=== PATIENT | male | born 1975 | race Caucasian/White ===

== ENCOUNTER 2018-12-06 10:03 | Observation (INO) ==
[2018-12-06] MEDS ORDERED: Pantoprazole 40 MG VIAL IVP ONE ×2 (11:29→13:12)
[2018-12-06] MEDS ORDERED: Octreotide 50 MCG/ML INJ IVP ONE (11:29)
--- NOTE | 2018-12-06 11:39 | Emergency Department Note ---
Disposition Clinical Impression: Alcohol use GI bleed Qualifiers: GI bleed type/associated pathology: unspecified gastrointestinal hemorrhage type Qualified Code(s): K92.2 - Gastrointestinal hemorrhage, unspecified Disposition: Admitted As Inpatient Referrals: Kalia Tovar DO [Primary Care Provider] - Forms: ED Satisfaction Letter Time of Disposition: 13:32 GI Bleed HPI - General Chief complaint: ED GI Bleed Stated complaint: "rectal bleeding" Time Seen by Provider: 12/06/18 11:10 Source: patient Limitations: no limitations Nursing Notes Reviewed: Yes Vital Signs Reviewed: Yes - History of Present Illness HPI Narrative: Mr. Wills is a 43-year-old male with past medical history of alcohol abuse and tobacco use, presenting emergency department with rectal bleeding. First noticed a small amount of bleeding on the toilet paper intermittently for a couple months, but yesterday and today his bleeding has increased and he is having bright red blood in the toilet. He has had diarrhea for several weeks to months. Denies lightheadedness, dizziness, syncope, abdominal pain, nausea, vomiting, or history of melena. Denies fevers, night sweats, weight loss, chest pain, or dyspnea. He admits drinking a 12 pack of beer each night. He is also a smoker. No family history of colon cancer. - Related Data Home Medications Medication Instructions Recorded Confirmed Paroxetine [Paxil] 20 mg PO DAILY 12/01/15 12/02/15 Previous Rx's Medication Instructions Recorded Ibuprofen [Motrin] 800 mg PO Q8HR #30 tablet 09/08/16 Amoxicillin/Clavulanate [Augmentin] 875 mg PO BIDWM #20 tablet 05/24/17 Fluticasone Propionate Nasal 2 spray NS DAILY #1 bottle 05/24/17 [Flonase] Allergies Allergy/AdvReac Type Severity Reaction Status Date / Time No Known Allergies Allergy Verified 12/06/18 10:17 Review of Systems: Admits to hematochezia and diarrhea. Denies lightheadedness, dizziness, syncope, abdominal pain, nausea, vomiting, melena, fevers, night sweats, weight loss, chest pain, or dyspnea Past Medical History - Past Medical History Medical history: Reports: non-contributory Surgical history: Reports: other Psychiatric history: Reports: anxiety, panic disorder - Social History Smoking Status: Current every day smoker Smokeless Tobacco Status: No Alcohol use: Reports: heavy Drug use: Reports: none Physical Exam GEN: No acute distress, A&O3 HEAD: Atraumatic, normocephalic EYES: Pupils symmetric, sclera white, conjunctiva pink HEART: RRR, normal S1 and S2, no murmurs LUNGS: Clear to auscultation bilaterally, no wheezes, rhonchi, or crackles ABD: Soft, mild epigastric tenderness, nondistended, no guarding, rigidity, or rebound RECTAL: normal tone, mild external irritation of the skin, but no fissures or external hemorrhoids, normal tone, no internal masses palpated, bright red blood stool on the glove EXT: No edema noted, pulses +2 NEURO: No focal deficits, cooperative with exam - General Limitations: no limitations General appearance: alert, in no apparent distress Course Vital Signs Temperature 98.6 F 12/06/18 10:18 Pulse Rate 79 12/06/18 10:18 Respiratory Rate 15 12/06/18 10:18 Blood Pressure 162/119 12/06/18 10:18 O2 Sat by Pulse Oximetry 96 12/06/18 10:18 Temperature 98.6 F 12/06/18 10:18 Pulse Rate 79 12/06/18 14:53 Respiratory Rate 16 12/06/18 14:53 Blood Pressure 148/116 12/06/18 14:53 O2 Sat by Pulse Oximetry 94 12/06/18 14:53 Oxygen Delivery Oxygen Delivery Room Air GI Bleed - MDM Narrative Medical decision making narrative: The patient is a 43 yo male presenting with GI bleed in the setting of chronic alcohol use. Rectal exam shows no obvious source of bleeding. Suspect esophageal varices as the source. Hemoccult-positive. EKG shows normal sinus rhythm, HR of 87, and no acute ischemic changes. Octreotide and pantoprazole ordered but the patient wanted to wait until labs returned before starting the medicines. His CBC, CMP, and PT/INR are all normal. He is asymptomatic, not tachycardic, but given the concern for possible worsening in his bleeding, he will be admitted to the hospitalist for observation and likely EGD and/or colonoscopy for evaluation of his bleeding. Discussed the case with the admitting hospitalist, Dr. Dumont, who is accepting of his admission. - Lab Data Result diagrams: 12/06/18 12:08 12/06/18 12:08 Lab Results 12/06/18 12/06/18 12/06/18 Range/Units 11:44 12:08 12:08 WBC 8.5 (4.3-11.1) K/mcL RBC 5.46 (4.19-5.50) M/mcL Hgb 16.4 (12.9-16.9) g/dL Hct 48.3 (37.5-50.1) % MCV 88.5 (83.0-100.0) fL MCH 30.0 (28.0-33.3) pg MCHC 34.0 (31.6-35.5) g/dL RDW 12.7 (11.5-14.5) % Plt Count 215 (140-400) K/mcL MPV 10.0 (9.4-12.4) fL Immature Gran % 0.4 (0-4) % Seg Neutrophils % 60.6 % Lymphocytes % 27.6 % Monocytes % 8.9 % Eosinophils % 1.7 % Basophils % 0.8 % Neutrophils # 5.1 (1.6-8.9) K/mcL Lymphocytes # 2.3 (0.6-4.6) K/mcL Monocytes # 0.8 (0.0-1.3) K/mcL Eosinophils # 0.1 (0.0-0.6) K/mcL Basophils # 0.1 (0.0-0.2) K/mcL PT 11.5 (9.4-12.1) Seconds INR 1.0 Sodium (136-145) mEq/L Potassium (3.5-5.1) mEq/L Chloride (98-107) mEq/L Carbon Dioxide (23-29) mEq/L BUN (6-20) mg/dL Creatinine (0.70-1.30) mg/dL Est GFR ( Amer) (> 60) Est GFR (Non-Af Amer) (> 60) BUN/Creatinine Ratio (6-26) Glucose (70-105) mg/dL Calculated Osmolality (280-300) Calcium (8.6-10.3) mg/dL Total Bilirubin (0.3-1.0) mg/dL Direct Bilirubin (0.0-0.2) mg/dL Indirect Bilirubin (0.0-1.2) mg/dL AST (13-39) Units/L ALT (7-52) Units/L Alkaline Phosphatase (34-104) Units/L Serum Total Protein (6.4-8.9) g/dL Albumin (3.5-5.7) g/dL Globulin (2.4-3.5) g/dL Albumin/Globulin Ratio (1.1-2.2) Stool Occult Bld Scrn Positive A (Negative) Blood Type Antibody Screen 12/06/18 12/06/18 12/06/18 Range/Units 12:08 12:08 12:08 WBC (4.3-11.1) K/mcL RBC (4.19-5.50) M/mcL Hgb (12.9-16.9) g/dL Hct (37.5-50.1) % MCV (83.0-100.0) fL MCH (28.0-33.3) pg MCHC (31.6-35.5) g/dL RDW (11.5-14.5) % Plt Count (140-400) K/mcL MPV (9.4-12.4) fL Immature Gran % (0-4) % Seg Neutrophils % % Lymphocytes % % Monocytes % % Eosinophils % % Basophils % % Neutrophils # (1.6-8.9) K/mcL Lymphocytes # (0.6-4.6) K/mcL Monocytes # (0.0-1.3) K/mcL Eosinophils # (0.0-0.6) K/mcL Basophils # (0.0-0.2) K/mcL PT (9.4-12.1) Seconds INR Sodium 143 (136-145) mEq/L Potassium 4.1 (3.5-5.1) mEq/L Chloride 107 (98-107) mEq/L Carbon Dioxide 27 (23-29) mEq/L BUN 15 (6-20) mg/dL Creatinine 0.93 (0.70-1.30) mg/dL Est GFR ( Amer) > 60 (> 60) Est GFR (Non-Af Amer) > 60 (> 60) BUN/Creatinine Ratio 16 (6-26) Glucose 103 (70-105) mg/dL Calculated Osmolality 297 (280-300) Calcium 9.4 (8.6-10.3) mg/dL Total Bilirubin 0.7 (0.3-1.0) mg/dL Direct Bilirubin 0.1 (0.0-0.2) mg/dL Indirect Bilirubin 0.6 (0.0-1.2) mg/dL AST 27 (13-39) Units/L ALT 33 (7-52) Units/L Alkaline Phosphatase 48 (34-104) Units/L Serum Total Protein 7.1 (6.4-8.9) g/dL Albumin 4.4 (3.5-5.7) g/dL Globulin 2.7 (2.4-3.5) g/dL Albumin/Globulin Ratio 1.6 (1.1-2.2) Stool Occult Bld Scrn (Negative) Blood Type O POSITIVE Antibody Screen NEGATIVE
--- NOTE | 2018-12-06 11:47 | Emergency Department Note ---
Disposition Clinical Impression: Alcohol use GI bleed Qualifiers: GI bleed type/associated pathology: unspecified gastrointestinal hemorrhage type Qualified Code(s): K92.2 - Gastrointestinal hemorrhage, unspecified Disposition: Admitted As Inpatient Condition: Fair Referrals: Kalia Tovar DO [Primary Care Provider] - Forms: ED Satisfaction Letter Time of Disposition: 13:52 General Adult HPI - General Chief complaint: ED GI Bleed Stated complaint: "rectal bleeding" Time Seen by Provider: 12/06/18 11:10 Source: patient Limitations: no limitations - History of Present Illness Pain Scale: 2 - Related Data Home Medications Medication Instructions Recorded Confirmed Paroxetine [Paxil] 20 mg PO DAILY 12/01/15 12/02/15 Previous Rx's Medication Instructions Recorded Ibuprofen [Motrin] 800 mg PO Q8HR #30 tablet 09/08/16 Amoxicillin/Clavulanate [Augmentin] 875 mg PO BIDWM #20 tablet 05/24/17 Fluticasone Propionate Nasal 2 spray NS DAILY #1 bottle 05/24/17 [Flonase] Allergies Allergy/AdvReac Type Severity Reaction Status Date / Time No Known Allergies Allergy Verified 12/06/18 10:17 Past Medical History - Past Medical History Medical history: Reports: non-contributory Surgical history: Reports: other Psychiatric history: Reports: anxiety, panic disorder - Social History Smoking Status: Current every day smoker Smokeless Tobacco Status: No Alcohol use: Reports: heavy Drug use: Reports: none Physical Exam - General Limitations: no limitations General appearance: alert, in no apparent distress Course Vital Signs Temperature 98.6 F 12/06/18 10:18 Pulse Rate 79 12/06/18 10:18 Respiratory Rate 15 12/06/18 10:18 Blood Pressure 162/119 12/06/18 10:18 O2 Sat by Pulse Oximetry 96 12/06/18 10:18 Temperature 98.6 F 12/06/18 10:18 Pulse Rate 86 12/06/18 13:12 Respiratory Rate 19 12/06/18 13:12 Blood Pressure 147/109 12/06/18 13:12 O2 Sat by Pulse Oximetry 98 12/06/18 13:12 Oxygen Delivery Oxygen Delivery Room Air Medical Decision Making - Lab Data Result diagrams: 12/06/18 12:08 12/06/18 12:08 Lab Results 12/06/18 12/06/18 12/06/18 Range/Units 11:44 12:08 12:08 WBC 8.5 (4.3-11.1) K/mcL RBC 5.46 (4.19-5.50) M/mcL Hgb 16.4 (12.9-16.9) g/dL Hct 48.3 (37.5-50.1) % MCV 88.5 (83.0-100.0) fL MCH 30.0 (28.0-33.3) pg MCHC 34.0 (31.6-35.5) g/dL RDW 12.7 (11.5-14.5) % Plt Count 215 (140-400) K/mcL MPV 10.0 (9.4-12.4) fL Immature Gran % 0.4 (0-4) % Seg Neutrophils % 60.6 % Lymphocytes % 27.6 % Monocytes % 8.9 % Eosinophils % 1.7 % Basophils % 0.8 % Neutrophils # 5.1 (1.6-8.9) K/mcL Lymphocytes # 2.3 (0.6-4.6) K/mcL Monocytes # 0.8 (0.0-1.3) K/mcL Eosinophils # 0.1 (0.0-0.6) K/mcL Basophils # 0.1 (0.0-0.2) K/mcL PT 11.5 (9.4-12.1) Seconds INR 1.0 Sodium (136-145) mEq/L Potassium (3.5-5.1) mEq/L Chloride (98-107) mEq/L Carbon Dioxide (23-29) mEq/L BUN (6-20) mg/dL Creatinine (0.70-1.30) mg/dL Est GFR ( Amer) (> 60) Est GFR (Non-Af Amer) (> 60) BUN/Creatinine Ratio (6-26) Glucose (70-105) mg/dL Calculated Osmolality (280-300) Calcium (8.6-10.3) mg/dL Total Bilirubin (0.3-1.0) mg/dL Direct Bilirubin (0.0-0.2) mg/dL Indirect Bilirubin (0.0-1.2) mg/dL AST (13-39) Units/L ALT (7-52) Units/L Alkaline Phosphatase (34-104) Units/L Serum Total Protein (6.4-8.9) g/dL Albumin (3.5-5.7) g/dL Globulin (2.4-3.5) g/dL Albumin/Globulin Ratio (1.1-2.2) Stool Occult Bld Scrn Positive A (Negative) Blood Type Antibody Screen 12/06/18 12/06/18 12/06/18 Range/Units 12:08 12:08 12:08 WBC (4.3-11.1) K/mcL RBC (4.19-5.50) M/mcL Hgb (12.9-16.9) g/dL Hct (37.5-50.1) % MCV (83.0-100.0) fL MCH (28.0-33.3) pg MCHC (31.6-35.5) g/dL RDW (11.5-14.5) % Plt Count (140-400) K/mcL MPV (9.4-12.4) fL Immature Gran % (0-4) % Seg Neutrophils % % Lymphocytes % % Monocytes % % Eosinophils % % Basophils % % Neutrophils # (1.6-8.9) K/mcL Lymphocytes # (0.6-4.6) K/mcL Monocytes # (0.0-1.3) K/mcL Eosinophils # (0.0-0.6) K/mcL Basophils # (0.0-0.2) K/mcL PT (9.4-12.1) Seconds INR Sodium 143 (136-145) mEq/L Potassium 4.1 (3.5-5.1) mEq/L Chloride 107 (98-107) mEq/L Carbon Dioxide 27 (23-29) mEq/L BUN 15 (6-20) mg/dL Creatinine 0.93 (0.70-1.30) mg/dL Est GFR ( Amer) > 60 (> 60) Est GFR (Non-Af Amer) > 60 (> 60) BUN/Creatinine Ratio 16 (6-26) Glucose 103 (70-105) mg/dL Calculated Osmolality 297 (280-300) Calcium 9.4 (8.6-10.3) mg/dL Total Bilirubin 0.7 (0.3-1.0) mg/dL Direct Bilirubin 0.1 (0.0-0.2) mg/dL Indirect Bilirubin 0.6 (0.0-1.2) mg/dL AST 27 (13-39) Units/L ALT 33 (7-52) Units/L Alkaline Phosphatase 48 (34-104) Units/L Serum Total Protein 7.1 (6.4-8.9) g/dL Albumin 4.4 (3.5-5.7) g/dL Globulin 2.7 (2.4-3.5) g/dL Albumin/Globulin Ratio 1.6 (1.1-2.2) Stool Occult Bld Scrn (Negative) Blood Type O POSITIVE Antibody Screen NEGATIVE Attestation Statement - Attestation Attestation: Physician attestation I saw and evaluated the patient and and reviewed the resident's note/PA note/FOAM CHARGER note, and I agree with the findings and plan. I personally supervised and was present for the patel/critical portions of any procedures. The medical decision- making was reviewed with the DATE NIGHT CAREGIVER/PA/Advanced Practice Nurse/Resident Physician. I agree with the documented findings, disposition and treatment plan as de scribed except to the extent set forth below. The patient presents with a GI bleed and has had rectal bleeding intermittently for the past several months but today had 2 episodes of large quantity which is bright red blood and of note the patient does drink 12 beers per day and we are concerned about possible esophageal varices. Rectal exam did not show a anatomic reason such as a fissure or hemorrhoid as etiology of the bleed. Patient does not have lightheadedness. He is started on Protonix, he is started on octreotide, we have a type and screen, labs are pending. The patient will be admitted. [id number] I did review the patient's EKG showing normal sinus rhythm with rate of 87 and without acute ischemic change [id number]
[2018-12-06 12:37] LABS: Basophils # 0.1 K/mcL (0.0-0.2); Basophils % 0.8 %; Eosinophils # 0.1 K/mcL (0.0-0.6); Eosinophils % 1.7 %; Hematocrit 48.3 % (37.5-50.1); Hemoglobin 16.4 g/dL (12.9-16.9); Immature Granulocytes % 0.4 % (0-4); Lymphocytes # 2.3 K/mcL (0.6-4.6); Lymphocytes % 27.6 %; Mean Corpuscular Volume 88.5 fL (83.0-100.0); Monocytes # 0.8 K/mcL (0.0-1.3); Monocytes % 8.9 %; Neutrophils # 5.1 K/mcL (1.6-8.9); Platelet Count 215 K/mcL (140-400); Red Blood Count 5.46 M/mcL (4.19-5.50); Red Cell Distribution Width 12.7 % (11.5-14.5); Segmented Neutrophils % 60.6 %; White Blood Count 8.5 K/mcL (4.3-11.1)
[2018-12-06 12:46] LABS: Prothrombin Time 11.5 Seconds (9.4-12.1)
[2018-12-06 13:00] LABS: Albumin 4.4 g/dL (3.5-5.7); Albumin/Globulin Ratio 1.6 (1.1-2.2); BUN/Creatinine Ratio 16 (6-26); Bilirubin,Direct 0.1 mg/dL (0.0-0.2); Bilirubin,Indirect 0.6 mg/dL (0.0-1.2); Bilirubin,Total 0.7 mg/dL (0.3-1.0); Blood Urea Nitrogen 15 mg/dL (6-20); Calcium 9.4 mg/dL (8.6-10.3); Carbon Dioxide 27 mEq/L (23-29); Chloride 107 mEq/L (98-107); Globulin 2.7 g/dL (2.4-3.5); Glucose 103 mg/dL (70-105); Osmolality,Calculated 297 (280-300); Potassium 4.1 mEq/L (3.5-5.1); Sodium 143 mEq/L (136-145); Total Protein 7.1 g/dL (6.4-8.9); eGFR For African Americans > 60 (> 60); eGFR For Non-African Americans > 60 (> 60)
[2018-12-06] MEDS: Nicotine 21 MG PATCH.TD24 TD SCH (13:26)
[2018-12-06] MEDS ORDERED: traMADol 50 MG TABLET PO PRN (13:53)
[2018-12-06] MEDS ORDERED: Ondansetron 4 MG/2 ML VIAL IVP PRN (13:53)
[2018-12-06] MEDS ORDERED: Naloxone 0.4 MG/ML INJ IVP PRN (13:53)
[2018-12-06] MEDS ORDERED: D5% in Water 1,000 ML IVC PRN (13:56)
[2018-12-06] MEDS ORDERED: *HR* Dextrose 50 % in Water (Syg) 50 ML SYRINGE IVP PRN (13:56)
[2018-12-06] MEDS ORDERED: Dextrose Gel 15 GM/37.5 ML TUBE PO PRN ×2 (13:56)
[2018-12-06] MEDS ORDERED: *HR* LORazepam 1 MG TABLET PO SCH (14:00)
[2018-12-06] MEDS ORDERED: *HR* LORazepam 2 MG/ML VIAL IVP PRN ×3 (14:52→15:21)
[2018-12-06 16:06] LABS: Lipase 100 Units/L (11-82)
[2018-12-06] MEDS ORDERED: Isovue-370 500 ML BOTTLE IVP ONE (16:36)
--- NOTE | 2018-12-06 16:44 | Internal Med History&Physical ---
Date of Encounter: 12/06/18 Time of Encounter: 16:37 Internal Medicine - H&P: HPI Chief complaint: painless bright red blood per rectum Plans for Post Hospital Care: Home History of present illness: Mr. Wills is a 43 year old male PMH of tobacco and alcohol abuse. Patient presented to the ED due to bright red blood per rectum. 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 Reported he kept having intermittent episodes of passing bright red blood while having a bowel movement, started he contacted his PCP a couple of weeks ago and he was scheduled for have a colonoscopy sometime in Jan. But reported last night when he was having a BM he started passing large amount of bright red blood per rectum, stated he was dripping blood and the toilet paper was saturated with blood. Reported after he had that BM last night the bleeding stopped, but reported he got up overnight to have a bowel movement and the same happened. He denies constipation, stated his stool has been loose all this time, denies abdominal pain, nausea or vomiting associated with his episodes. denies fever or chills. Denies Hx of colon cancer in his family. Patient also reports drinking 12 beers a day everyday, for sometime now and smoking almost 2 packs of cigarettes for the past 20 years. Past Med Surg Social Fam HX - Past Medical History Medical history: non-contributory Psychiatric history: anxiety, panic disorder - Past Surgical History Surgical History: other Additional surgical history: sinus surgery, shoulder sx - Social History Smoking Status: Current every day smoker Smokeless Tobacco Status: No Alcohol use: heavy Drug use: none - Family History Mother Hx Family Cardiac Disorders: Yes (HTn) Father Hx Family Cardiac Disorders: Yes (HTN) Internal Medicine - H&P: Meds Paroxetine [Paxil] 20 mg PO DAILY 12/01/15 [History] Allergy/AdvReac Type Severity Reaction Status Date / Time No Known Allergies Allergy Verified 12/06/18 10:17 All Systems PM: A 10-system review of systems was performed and is negative for pertinent findings except as documented above in the HPI. - Constitutional Constitutional: no chills, no fever(s), no weakness, no weight loss - Cardiovascular Cardiovascular ROS IM: no chest pain, no dyspnea on exertion, no irregular heart rhythm, no lightheadedness, no palpitations, no paroxysmal nocturnal dyspnea - Respiratory Respiratory: no cough - Gastrointestinal Gastrointestinal: hematochezia, no abdominal pain, no coffee ground emesis, no constipation, no hematemesis, no melena, no nausea, no vomiting - Genitourinary Genitourinary ROS male: no dysuria, no nocturia, no urinary frequency, no urinary urgency - Musculoskeletal Musculoskeletal ROS IM: no arthralgias, no numbness, no stiffness - Integumentary Integumentary IM: no erythema, no non-healing lesions - Neurological Neurological ROS: no headache(s), no weakness - Psychiatric Psychiatric: no anxiety, no hallucinations, no irritability - Endocrine Endocrine IM: no cold intolerance, no excessive sweating - Hematologic/Lymphatic Hematologic/Lymphatic: no lymphadenopathy - Allergic/Immunologic Allergic/Immunologic: no GI upset with certain foods - Constitutional Vitals: Temp Pulse Resp BP Pulse Ox 98.3 F 77 20 150/116 95 12/06/18 16:22 12/06/18 16:22 12/06/18 16:22 12/06/18 16:22 12/06/18 16:22 Exam: Vitals: Reviewed General: Alert and oriented x4. in no distress. Cardiovascular: RRR, normal S1 & S2, no rubs, murmurs or gallops. Lungs: CTA b/l, no wheezes or crackles. Abdomen: Soft, non-tender, no rigidity. Extremities: No edema Neurological: Normal cognition and motor skills. Rest of the physical exam is non contributory Internal Med - H&P Results - Labs CBC & Chem 7: 12/06/18 12:08 12/06/18 12:08 Labs: Short CBC 12/06/18 Range/Units 12:08 WBC 8.5 (4.3-11.1) K/mcL Hgb 16.4 (12.9-16.9) g/dL Hct 48.3 (37.5-50.1) % Plt Count 215 (140-400) K/mcL Neutrophils # 5.1 (1.6-8.9) K/mcL BMP 12/06/18 12:08 Sodium 143 Potassium 4.1 Chloride 107 Carbon Dioxide 27 BUN 15 Creatinine 0.93 Glucose 103 Calcium 9.4 Liver Function 09/19/19 Range/Units 12:08 Total Bilirubin 0.7 (0.3-1.0) mg/dL Direct Bilirubin 0.1 (0.0-0.2) mg/dL AST 27 (13-39) Units/L ALT 33 (7-52) Units/L Alkaline Phosphatase 48 (34-104) Units/L Albumin 4.4 (3.5-5.7) g/dL - Assessment and Plan (1) GI bleed Current Visit: Yes Status: Acute Assessment and plan: patient presented with a painless bright red blood per rectum. Plan - CT abd./pelvis with contrast ordered. - GI consulted, patient might need EGD and colonoscopy - CBC Q8HRs, will transfuse per protocol - started on PPIs and anti-emetics, presentation most likely secondary to lower GI bleed, hemorrhoid, vs diverticular bleed? - clear liquid diet - npo at midnight Qualifiers: GI bleed type/associated pathology: unspecified gastrointestinal hemorrhage type Qualified Code(s): K92.2 - Gastrointestinal hemorrhage, unspecified (2) Alcohol use Current Visit: Yes Status: Chronic Assessment and plan: reported drinking 12 beers a day. no signs of active alcohol withdrawal. Plan CIWA protocol. (3) Tobacco use Current Visit: No Status: Chronic Assessment and plan: reported smoking almost 2 packs per day for the past 20 years. smoking cessation counseling and education provided. (4) DVT prophylaxis Current Visit: Yes Status: Acute Assessment and plan: started on intermittent pneumatic compression. no chemical dvt prophylaxis due to bright red blood per rectum. (5) HTN (hypertension) Current Visit: Yes Status: Chronic Assessment and plan: reported his BP has been running high and it is being monitor by his PCP. Plan: started on amlodipine 5mg/PO daily. Qualifiers: Hypertension type: unspecified Qualified Code(s): I10 - Essential (primary) hypertension - Time Spent With Patient Total time spent is greater than 50% in coordination of care (as documented) at patient's floor/unit and/or counseling patient: Greater than 35 minutes (45)
[2018-12-06] MEDS ORDERED: SODIUM CHLORIDE/NAHCO3/KCL/PEG 4,000 ML SOLN.RECON PO ONE (17:00)
[2018-12-06] MEDS: D5% in Lactated Ringers 1,000 ML IVC SCH (17:23)
[2018-12-06] MEDS: amLODIPine 5 MG TABLET PO SCH (17:23)
[2018-12-06] MEDS: Pantoprazole 40 MG VIAL IVP SCH (17:23)
[2018-12-06] MEDS: Insulin LISPRO 300 UNITS/3 ML VIAL SQ SCH (18:04)
[2018-12-06 20:51] LABS: Basophils # 0.1 K/mcL (0.0-0.2); Basophils % 0.9 %; Eosinophils # 0.2 K/mcL (0.0-0.6); Eosinophils % 2.2 %; Hematocrit 45.9 % (37.5-50.1); Hemoglobin 15.8 g/dL (12.9-16.9); Immature Granulocytes % 0.2 % (0-4); Lymphocytes # 2.4 K/mcL (0.6-4.6); Lymphocytes % 29.3 %; Mean Corpuscular HGB Conc 34.4 g/dL (31.6-35.5); Mean Corpuscular Hemoglobin 30.7 pg (28.0-33.3); Mean Corpuscular Volume 89.3 fL (83.0-100.0); Mean Platelet Volume 10.1 fL (9.4-12.4); Monocytes # 0.9 K/mcL (0.0-1.3); Monocytes % 11.4 %; Neutrophils # 4.5 K/mcL (1.6-8.9); Platelet Count 188 K/mcL (140-400); Red Blood Count 5.14 M/mcL (4.19-5.50); Red Cell Distribution Width 12.5 % (11.5-14.5)
[2018-12-07] MEDS: Insulin LISPRO 300 UNITS/3 ML VIAL SQ SCH ×2 (00:16→05:30)
[2018-12-07 01:49] LABS: BUN/Creatinine Ratio 13 (6-26); Blood Urea Nitrogen 11 mg/dL (6-20); Calcium 8.3 mg/dL (8.6-10.3); Carbon Dioxide 24 mEq/L (23-29); Chloride 108 mEq/L (98-107); Glucose 93 mg/dL (70-105); Osmolality,Calculated 287 (280-300); Potassium 3.6 mEq/L (3.5-5.1); Sodium 139 mEq/L (136-145); eGFR For African Americans > 60 (> 60); eGFR For Non-African Americans > 60 (> 60)
[2018-12-07] MEDS: Pantoprazole 40 MG VIAL IVP SCH (05:20)
[2018-12-07 06:06] LABS: Basophils # 0.1 K/mcL (0.0-0.2); Basophils % 0.9 %; Eosinophils # 0.2 K/mcL (0.0-0.6); Eosinophils % 2.7 %; Hemoglobin 15.8 g/dL (12.9-16.9); Immature Granulocytes % 0.3 % (0-4); Lymphocytes # 1.7 K/mcL (0.6-4.6); Lymphocytes % 22.8 %; Mean Corpuscular HGB Conc 33.6 g/dL (31.6-35.5); Mean Corpuscular Hemoglobin 30.2 pg (28.0-33.3); Mean Corpuscular Volume 89.7 fL (83.0-100.0); Mean Platelet Volume 10.1 fL (9.4-12.4); Monocytes # 0.8 K/mcL (0.0-1.3); Monocytes % 9.9 %; Neutrophils # 4.8 K/mcL (1.6-8.9); Platelet Count 193 K/mcL (140-400); Red Blood Count 5.24 M/mcL (4.19-5.50); Red Cell Distribution Width 12.4 % (11.5-14.5); Segmented Neutrophils % 63.4 %; White Blood Count 7.5 K/mcL (4.3-11.1)
--- NOTE | 2018-12-07 06:06 | Electrocardiograph Report ---
[facility] Test Date: 2018-12-06 Pat Name: Morgan Wills Department: [id number] Room: 3B36 Gender: M Clinical Research Specialist: : [id number] Requested By: Eben Rick Order Number: [id number] Reading MD: Hans Carlos Measurements Intervals [place] Rate: 87 P: 57 AK: 152 QRS: 90 QRSD: 98 T: 14 QT: 351 QTc: 423 Interpretive Statements Sinus rhythm Electronically Signed On 12-07-2018 6:04:35 EDT by Hans Carlos
--- NOTE | 2018-12-07 07:55 | Anesthesia Evaluation PreOp ---
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 History: Other (anxiety) Other Medical History: Denies Any Significant HX Anesthesia History: No Prior Anesthetic Complications, Past Anesthesia (sinus and shoulder) Alcohol Use: heavy Drug use: none Medications and Allergies Paroxetine [Paxil] 20 mg PO DAILY 12/01/15 [History] Allergy/AdvReac Type Severity Reaction Status Date / Time No Known Allergies Allergy Verified 12/06/18 10:17 - Meds/Allergy Pre-op Review Medications Reviewed: Yes Allergies Reviewed: Yes Beta Blockers on Current Med List: No Anesthesia Results - Labs 12/07/18 05:41 12/07/18 00:56 Anesthesia Exam Selected Entries 12/07/18 07:24 Temperature 97.8 F Pulse Rate 82 Respiratory Rate 16 Blood Pressure 133/86 O2 Sat by Pulse Oximetry 94 Oxygen Delivery Method Room Air Weight: 101kg NPO (# of Hours): 8 - HEENT Pupil (Motor): EOMI Mallampati: II Teeth: Normal Oral Opening: Greater than 3 - AIR BRAKE OPERATOR LOC: Oriented AIR BRAKE OPERATOR Motor: Normal RUE, Normal LUE, Normal RLE, Normal LLE, Normal Face AIR BRAKE OPERATOR Sensory: Normal: RUE, LUE, RLE, LLE, Face - Cardiac Rhythm: Regular Murmur: None - Pulmonary Breath Sounds: bilateral Clear Respiratory Effort: Symmetrical Anesthesia Assess/Plan ASA Score: 2 Level of consciousness: Cooperative, Oriented Anesthetic Plan: MAC Monitoring Plan: Standard Monitors Recovery Plan: Other (agrees to MAC)
[2018-12-07 07:58] VITALS: BP 145/96
[2018-12-07] MEDS ORDERED: Lidocaine -MPF 2% 2 ML VIAL ONE (08:09)
[2018-12-07] MEDS ORDERED: *HR* Propofol 200 MG/20 ML VIAL IVP ONE (08:10)
[2018-12-07] MEDS ORDERED: Propofol 500 MG/50 ML INFUS..BTL ONE (08:10)
[2018-12-07] MEDS ORDERED: Thiamine (B-1) 100 MG TABLET PO SCH (09:00)
[2018-12-07] MEDS ORDERED: Vitamin B Complex/Vit C/Vit E 1 EACH TABLET PO SCH (09:00)
[2018-12-07] MEDS ORDERED: Folic Acid 1 MG TABLET PO SCH (09:00)
[2018-12-07] MEDS: amLODIPine 5 MG TABLET PO SCH (10:17)
[2018-12-07] MEDS: Nicotine 21 MG PATCH.TD24 TD SCH (10:17)
--- NOTE | 2018-12-07 10:17 | Gastroenterology Consult Note ---
Date of Encounter: 12/07/18 Time of Encounter: 09:10 - Assessment and plan (1) GI bleed Current Visit: Yes Status: Acute Assessment and plan: Hgb 16.4 on admission and Hgb 15.8 today. EGD and colonoscopy completed this morning. EGD with LA grade B reflux esophagitis, small hiatal hernia, use daily PPI, no alcohol or smoking. Colonoscopy with 2 mm polyp in the descending colon, anal fissure with bleeding noted. Recommend daily fiber supplement. Will send Diltiazem ointment to [facility]. Follow up in GI office in 4 weeks. Qualifiers: GI bleed type/associated pathology: unspecified gastrointestinal hemorrhage type Qualified Code(s): K92.2 - Gastrointestinal hemorrhage, unspecified (2) GERD (gastroesophageal reflux disease) Current Visit: Yes Status: Acute Assessment and plan: EGD with LA grade B reflux esophagitis, small hiatal hernia, use daily PPI, no alcohol or smoking. Patient educated regarding lifestyle modifications including: (1) avoidance of foods that may precipitate reflux (eg, coffee, alcohol, chocolate, fatty foods). (2) avoidance of acidic foods that may precipitate heartburn (eg, citrus, carbonated drinks, spicy foods). (3) adoption of behaviors that may reduce esophageal acid exposure (see weight loss, smoking cessation, raising the head of the bed, and avoiding recumbency for 2-3 hours after meals). Qualifiers: Esophagitis presence: with esophagitis Qualified Code(s): K21.0 - Gastro- esophageal reflux disease with esophagitis (3) Alcohol use Current Visit: Yes Status: Chronic Assessment and plan: Recommend abstaining from alcohol use. - Time Spent With Patient Total time spent is greater than 50% in coordination of care (as documented) at patient's floor/unit and/or counseling patient: GI History of Present Illness - Data of Consult Patient: new to practice Consult date: 12/07/18 Requesting Physician: Iron Dumont MD - Consult Narrative Reason for consult: GI bleed History of present illness: Mr. Wills is a 43 year old male with PMHx of tobacco and alcohol abuse presented to the ED with complaints of BRBPR. This started about 2 months ago when he noticed BRBPR with wiping. He states he spoke to a nurse at work, who told him it could be due to hemorrhoids. He continued to have intermittent episodes of BRBPR with wiping, then it began to worsen a few weeks ago. He noted blood in the bowl and with wiping. He saw his PCP 11/27/2018 and was referred to Dr. Poole for colonoscopy, which was scheduled for 01/28/19. Patient states the he was having large amount of bleeding for the past 2 days, and noticed blood dripping into the bowl. He denies any fever, chills, chest pain, nausea, vomiting, abdominal pain, diarrhea, constipation, or melena. He denies any pain with BM. He admits to drinking 12 beers daily for the past few months. CT A/P showed diverticulosis and few mildly dilated loops of small bowel in the left upper quadrant likely related to ileus. Procedures: None NSAIDs: None Anticoagulation: None Past Med Surg Social Fam HX - Past Medical History Medical history: non-contributory Psychiatric history: anxiety, panic disorder - Past Surgical History Surgical History: other Additional surgical history: sinus surgery, shoulder sx - Social History Smoking Status: Current every day smoker Smokeless Tobacco Status: No Alcohol use: heavy Drug use: none - Family History Mother Hx Family Cardiac Disorders: Yes (HTn) Father Hx Family Cardiac Disorders: Yes (HTN) - Gastrointestinal Gastrointestinal: Present: as per HPI - Constitutional Constitutional: as per HPI - EENT Eyes: as per HPI Ears: Present: as per HPI Nose, mouth and throat: Present: as per HPI - Cardiovascular Cardiovascular ROS: Present: as per HPI - Respiratory Respiratory IM: Present: as per HPI - Genitourinary Genitourinary: Absent: change in color, Urinary frequency - Neurological ROS Neurological GI: Present: as per HPI - Hematologic/Lymphatic Hematologic/Lymphatic pediatric: Present: as per HPI - Musculoskeletal Musculoskeletal ROS GI: Present: as per HPI - Integumentary Integumentary GI: Present: as per HPI - Psychiatric ROS Psychiatric GI: Present: as per HPI - Endocrine Endocrine IM: Present: as per HPI - Constitutional Vitals: Temp Pulse Resp BP Pulse Ox 97.9 F 68 16 145/96 97 12/07/18 07:53 12/07/18 07:53 12/07/18 07:53 12/07/18 07:53 12/07/18 07:53 General appearance: Present: cooperative, A&O X 3, no acute distress, answers questions appropriately - Head Head exam: Present: atraumatic, normocephalic - Eye Eye exam: Present: normal appearance, sclera anicteric - ENT ENT exam: Present: mucous membranes moist - Neck Neck exam general surgery: Present: normal inspection, trachea midline - Respiratory Respiratory exam: Present: CTAB. Absent: rales, rhonchi, wheezes - Cardiovascular Cardiovascular exam: Present: RRR, +S1, +S2 - GI/Abdominal GI/Abdominal exam: Present: soft, no peritoneal signs. Absent: distended, firm, guarding, tenderness - Rectal Rectal exam: Present: deferred - Extremities Exam Extremities exam: Present: warm - Neurological Exam Neurological exam: Present: no focal deficits - Psychiatric Psychiatric exam: Present: normal affect, normal mood - Skin Skin exam: Present: dry, intact, normal color, warm Results - Labs CBC & Chem 7: 12/07/18 05:41 12/07/18 00:56 Labs: Last Result 12/07/18 00:56 Calcium 8.3 L Entire Visit 12/07/18 05:41 Hgb 15.8 Hct 47.0 - ABG ABG results: PT/INR, D-dimer PT 11.5 Seconds (9.4-12.1) 12/06/18 12:08 - Impressions Impressions Abdomen/Pelvis CT 12/06/18 20:28 IMPRESSION: Few mildly dilated loops of small bowel in the left upper quadrant likely related to ileus. No other acute abdominal or pelvic abnormality. Colonic diverticulosis without acute diverticulitis. D/ / 12/06/2018 20:44:25 Grace Dumont MD / tosin Interpreting Provider: Grace Dumont MD Consult Discharge Plan - Plan Referrals: Kalia Tovar DO [Primary Care Provider] - 12/17/18 11:15 am ()
[2018-12-07] MEDS: D5% in Lactated Ringers 1,000 ML IVC SCH (10:18)
--- NOTE | 2018-12-07 10:41 | Discharge Summary ---
Orders not resulted at time of discharge: Pending orders 12/07/18 08:43 Surgical Pathology [PTH] Routine Date of Encounter: 12/07/18 Time of Encounter: 10:34 - Discharge Diagnosis (1) Anal fissure Priority: Primary Status: Acute (2) GI bleed Priority: Primary Status: Resolved Assessment and Plan: secondary anal fissure Qualifiers: GI bleed type/associated pathology: unspecified gastrointestinal hemorrhage type Qualified Code(s): K92.2 - Gastrointestinal hemorrhage, unspecified (3) Alcohol use Priority: Secondary Status: Chronic (4) Tobacco use Priority: Secondary Status: Chronic (5) DVT prophylaxis Priority: Secondary Status: Chronic (6) HTN (hypertension) Priority: Secondary Status: Chronic Qualifiers: Hypertension type: unspecified Qualified Code(s): I10 - Essential (primary) hypertension (7) Hiatal hernia Priority: Secondary Status: Chronic (8) Esophagitis Priority: Secondary Status: Acute Hospital course: Mr. Wills is a 43 year old male PMH of tobacco and alcohol abuse. Patient presented to the ED due to bright red blood per rectum. Admitted to the hospital due to bright red blood per rectum. CT/CT abd pelvis w iv no oral IMPRESSION: Few mildly dilated loops of small bowel in the left upper quadrant likely related to ileus. No other acute abdominal or pelvic abnormality. Colonic diverticulosis without acute diverticulitis. Patient managed with PPis. GI consulted and patient underwent, EGD: LA grade B esophagitis, small hiatal hernia, ashlee mucosa in the entire stomach and duodenum. Colonoscopy: Anal fissure, normal mucosa was found in the entire colon. H&H remained stable, patient did not require any blood transfusion. Discharge in stable condition, recommended a diet rich in fibers. Education and assistance offered regarding smoking cessation and alcohol abuse. Recommended to follow up with his PCP within a week of hospital discharge to discuss outpatient antihypertensive management. - Time Spent with Patient Total time spent providing and/or coordinating discharge services: Time spent: Greater than 30 minutes (35) - Discharge Medications Prescriptions: New Lidocaine/Menthol/Aloe Vera [Aloe Vera Pain Relieving Gel] 454 gm TP TID PRN 30 Days #1 gel..gram. PRN Reason: Pain amLODIPine [Norvasc] 5 mg PO DAILY 30 Days #30 tablet Omeprazole 20 mg PO DAILY #30 tablet.dr Continued Paroxetine [Paxil] 20 mg PO DAILY Home Medications: Paroxetine [Paxil] 20 mg PO DAILY 12/01/15 [History] Lidocaine/Menthol/Aloe Vera [Aloe Vera Pain Relieving Gel] 454 gm TP TID PRN 30 Days #1 gel..gram. 12/07/18 [Rx] Omeprazole 20 mg PO DAILY #30 tablet. 12/07/18 [Rx] amLODIPine [Norvasc] 5 mg PO DAILY 30 Days #30 tablet 12/07/18 [Rx] Allergies/Adverse Reactions: Allergy/AdvReac Type Severity Reaction Status Date / Time No Known Allergies Allergy Verified 12/06/18 10:17 Date of admission: 12/06/18 15:28 Primary care physician: Kalia Tovar DO Consults: 12/06/18 13:55 Consult to Gastroenterology [CONS] Routine Consulting Provider: Gastroenterology Jamila Reason for Consult: gi bleed Call Completed: Yes - Constitutional Vitals: Temp Pulse Resp BP Pulse Ox 97.9 F 68 16 145/96 97 12/07/18 07:53 12/07/18 07:53 12/07/18 07:53 12/07/18 07:53 12/07/18 07:53 Exam: Vitals: Reviewed General: Alert and oriented x4. in no distress. Cardiovascular: RRR, normal S1 & S2, no rubs, murmurs or gallops. Lungs: CTA b/l, no wheezes or crackles. Abdomen: Soft, non-tender, no rigidity. NABS in all 4 quadrants. Extremities: No edema Neurological: No focal neurological abnormalities. Rest of the physical exam is non contributory - Patient Status Disposition: Home, Self-Care Condition: Good Functional capacity at discharge: independent ambulation Overall status at discharge: patient is back to baseline - Discharge Instructions Instructions: Anal Fissure (DC), High Fiber Diet (DC), Hypertension (DC) Follow Up With: Kalia Tovar DO [Primary Care Provider] - 12/17/18 11:15 am () Additional Instructions: Follow-up appointments: If there is not an appointment listed below, please call your physician and schedule a follow-up appointment. If you have congestive heart failure and your symptoms return, make an appointment with your physician. Medication List: Carry an up to date list of medications you are taking at all time. We have given you an updated medication list including any new medications that you have been prescribed. Please provide that list to your primary provider Symptoms: If your condition changes or you experience any of the following symptoms, notify your physician immediately: Unusual or worsening pain, fever, persistent nausea and vomiting, bleeding, increase in swelling (especially in your legs), sudden weight gain, extreme dizziness, chest pain, increased drainage or redness from a wound or incision. Go to the emergency department if you experience a problem with breathing. Weights: If you have a history of swelling or shortness of breath, weigh yourself daily and notify your physician if you have a weight gain of two or more pounds in one day or 5 or more pounds in a week. If you experience any of the warning signs for stroke: Sudden numbness or weakness of the face, arm or leg; especially on one side of the body, sudden confusion, trouble speaking or understanding, sudden trouble seeing in one or both eyes, sudden trouble walking, dizziness, loss of balance or coordination, sudden sever headache with no cause; Call 911 or go to the emergency room. Stroke is a medical emergency. Some risk factors for stroke: Age, cigarette smoking, diabetes, excessive alcohol consumption, family history, high blood pressure, overweight, physical inactivity, prior stroke, heart attack, diagnosis of carotid artery stenosis or other artery disease. If you smoke, STOP: Smoking or tobacco use significantly increases your risk of heart and lung disease. Your chance of disease greatly increases if you continue to smoke. For more information, call the [place] tobacco quit line for smoking cessation 3-727-UOAF-NOW ( ) - Diet and Activity Activity: resume usual activities as tolerated Diet: low salt diet
== END 2018-12-07 11:00 | disposition home or self-care (01) ==
LOC: EMEROOARM 10:03 → 3BNU 10:03
PROVIDERS: ADMIT Internal Medicine; ATTEND Internal Medicine